=== PATIENT | male | born 1960 | race Caucasian/White ===

== ENCOUNTER 2022-07-16 10:09 | Outpatient (CLI) | payer OTHER, SELFPAY ==
--- NOTE | ~2022-07-16 | MR_ITS ---
EXAMINATION: MR shoulder RT wo con DATE: 07/16/2022 11:03 INDICATION: Right shoulder pain. TECHNIQUE: Magnetic resonance imaging (MRI) of the right shoulder was performed without intravenous c ontrast. Sequences included axial PD-weighted FS FSE, coronal oblique PD-weighted FS FSE and T2-weigh klever FS FSE, and sagittal oblique T2-weighted FS FSE and T1-weighted FSE. COMPARISON: None. FINDINGS: Coracoacromial arch: The acromion undersurface is flat in morphology (type I). There are likely changes of acromioplasty. Subacromial spurring is noted. There is severe acromioclavicular joint osteoarthritis. There is moder ate subacromial/subdeltoid bursitis that communicates with the acromioclavicular joint. Rotator cuff: There is a full-thickness tear of supraspinatus and infraspinatus tendons measuring 4.8 cm anterior t o posterior by greater than 5 cm proximal to distal. There is mild teres minor tendinopathy. There is severe tendinopathy of superior subscapularis tendon. There is volume loss and moderate fatty atroph y of supraspinatus and infraspinatus muscle bellies. There is mild fatty atrophy of subscapularis mus sarah belly. Biceps tendon and glenoid labrum: There is a complete tear of proximal biceps tendon. There is degenerative tearing of the glenoid labr um. Fluid: There is a small glenohumeral joint effusion. Bones/cartilage: There is deep partial-thickness cartilage loss of glenoid and humeral head. IMPRESSION: 1. Massive full-thickness rotator cuff tear. 2. Moderate glenohumeral joint chondrosis. 3. Small glenohumeral joint effusion that communicates with moderate subacromial/subdeltoid bursitis and an acromioclavicular joint effusion. 4. Severe acromioclavicular joint osteoarthritis. 5. Complete tear of proximal biceps tendon. Reviewed, dictated and finalized at location A. 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 Massive full-thickness rotator cuff tear. 2. Moderate glenohumeral joint chondrosis. 3. Small glenohumeral joint effusion that communicates with moderate subacromia l/subdeltoid bursitis and an acromioclavicular joint effusion. 4. Severe acromioclavicular joint osteoarthritis. 5. Complete tear of proximal biceps tendon.
== END 2022-07-16 10:10 | disposition home or self-care (01) ==
PROVIDERS: PCP Family Medicine; Visit Provider Physician Assistant
DX: M19.011 Primary osteoarthritis, right shoulder (principal); S46.211A Strain of muscle, fascia and tendon of other parts of biceps, right arm, initial encounter; X58.XXXA Exposure to other specified factors, initial encounter
CPT/HCPCS: 73221